=== PATIENT | male | born 1950 | race Caucasian/White ===

== ENCOUNTER 2016-06-07 10:46 | Emergency (ER) | payer MEDICARE, OTHER ==
[~2016-06-07] VITALS: Ht 162.6 cm; Wt 88.0 kg
[~2016-06-07 10:46] MED LIST: ATORVASTATIN CA10 M1 PO; BENADRYL 25MG C25 MG PO; FENOFIBRATE MI134 MG PO; GABAPENTIN 600600 MG PO; GLIMEPIRIDE 4MG4 MG PO; HYDROCODONE1 TABLET PO; KEFLEX 500MG.500 MG PO; LEVOTHYROXINE0.05 MG NG; LORTAB 5/500 501 TAB PO; METFORMIN HCL1000 MG PO; NEXIUM40 MG PO; PHENERGAN 25MG.25 M1 PO; PIOGLITAZONE HC30 MG PO; PREDNISONE 20MG20 MG PO; RANITIDINE HCL150 MG PO; SUCRALFATE 1GM T1 GM NG; TAMSULOSIN HYD0.4 MG PO; VASCEPA1 GM PO; ZOFRAN4 MG PO
--- NOTE | 2016-06-07 11:09 | Emergency Room Report ---
History of Present Illness Time Seen by [id number] Presenting Problem in Triage Pt arrived:Walked Presenting Problem:FEET PAIN, PT IS DIABETIC. 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 N Clinical Suspician of Infection? N Mental Status: 1 - Regular (Normal Baseline) Sepsis Risk:Low Sepsis Risk Have you (or family members/close friends) recently traveled outside the [place]? N If Yes, where/when: Have you had exposure to infectious disease within the past month? TB? Other? Specify: Source patient, RN notes reviewed, RN/MD Exam Limitations no limitations Comment This is a 65-year-old gentleman presented emergency room with LEFT ankle and RIGHT heel pain since earlier this morning. Patient denies any recent injury, he does not have a limp. He is a diabetic, taking gliperimide and metformin, which went to his blood sugars under tight glycemic control. ALLERGIES Coded Allergies: NO KNOWN ALLERGIES (06/07/16) Home Medications Active Scripts CEPHALEXIN (Keflex 500MG Capsule) 500 MG PO Q8H #21 CAP Prov: 12/05/14 TAMSULOSIN HCL (Tamsulosin 0.4MG) 0.4 MG PO QHS #30 CAP Prov: 12/19/13 FENOFIBRATE (Fenofibrate) 134 MG PO QPM #30 TAB Prov: 12/19/13 Reported Medications METFORMIN HCL (Metformin 1000MG) 1,000 MG PO DAILY Levothyroxine Sodium (Levothyroxine) 0.025 MG NG DAILY PIOGLITAZONE HCL (Pioglitazone Hcl 30MG Tablet) 30 MG PO DAILY Esomeprazole Magnesium (Nexium 40MG Cap) 40 MG PO DAILY Gabapentin (Gabapentin 600MG) 600 MG PO QHS Ranitidine Hcl (Ranitidine 150MG) 150 MG PO BID Sucralfate (Sucralfate 1GM Tablet) 1 GM NG ACHS Icosapent Ethyl (Vascepa) 2 GM PO BID Atorvastatin Calcium 10 MG PO DAILY Glimepiride (Glimepiride 4MG Tablet) 4 MG PO DAILY History Medical History General Angina: Yes AL: No Hypertension? No Hyperlipidemia? Yes CHF? No COPD? No Asthma? No Hernia? Yes CVA? No Seizures? No Diabetes? Yes Insulin Dependent: No Insulin Pump: No Home FSBS? No End Stage Renal Disease? No UTI? No Stones? Yes GB Disease: No Nephritic Syndrome? No Asplenia? No Hepatitis? No Sickle Cell Disease? No Arthritis? Yes Cataracts? Yes Glaucoma? No MRSA? No TB? No Cancer? 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 No: respiratory distress. Lung Sounds bilateral: normal breath sounds, lungs clear. Cardiovascular normal exam, regular rate/rhythm, no peripheral edema, no gallop, no JVD, no murmur, no rub, normal peripheral pulses Gastrointestinal normal bowel sounds, normal exam, non tender, soft, no organomegaly Extremities non-tender, normal range of motion, normal inspection, both LEFT ankle and RIGHT heel appear within normal limits, nontender, without any swelling, deformity. Patient does not appear to be having any problems, such as sleeping, with ambulation. Range of motion is not limited in either ankle. 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 No Results/Orders Orders Procedure Date/time Status FOOT-RT-3 VIEWS 06/07 1103 Active ANKLE-LT-3 VIEWS 06/07 1102 Active XRAY/CT/US XRAY/CT/US XRAY LEFT ankle, RIGHT foot- see radiologist report, consistent with arthritis, bone spurs, healed old fractures Departure Departure Time of Disposition 1130 Disposition DC Home or Self Care(routine) Clinical Impression Primary Impression: Arthritis Condition STABLE Referrals Jamar QUAN,Zach (Family): 2 Days-Call Office if not better Patient Instructions Osteoarthritis Additional Instructions Please take the medications prescribed as instructed, follow-up with Dr. Roldan if no better per instructions. Discharge Counseling Counseled pt/family regarding diagnosis, test results, medications/RX, home care, follow up needs Comment Please take the medications prescribed as instructed, follow-up with Dr. Roldan if no better per instructions. Prescriptions Current Visit Scripts ACETAMINOPHEN/DIPHENHYDRAMINE (Percogesic 325-12.5 MG Tablet) 1 TAB PO QIDP PRN PAIN #30 TAB ED Critical Care Critical Care No at 3114
[2016-06-07] MEDS ORDERED: PERCOGESIC1 TAB PO (11:10)
--- NOTE | 2016-06-07 11:46 | RADIOLOGY REPORT PS360 ---
ANKLE-LT-3 VIEWS COMPARISON: Right ankle 05/20/2008 HISTORY: Left ankle pain TECHNIQUE: AP lateral and oblique views FINDINGS: There is no significant soft tissue swelling about the ankle. The medial and lateral malleolus appear intact. There is minimal spurring of the tip of the medial malleolus resulting in some minimal focal narrowing of the ankle mortise, otherwise ankle mortise is normal. IMPRESSION: Minor degenerative change of the ankle medially as described, no acute fracture seen
--- NOTE | 2016-06-07 11:49 | RADIOLOGY REPORT PS360 ---
FOOT-RT-3 VIEWS COMPARISON: Right ankle 05/20/2008 HISTORY: Right foot pain TECHNIQUE: AP lateral and oblique views FINDINGS: There is moderate posttraumatic deformity of the distal fibula with prominent ossification of the interosseous membrane between the lower tibia and fibula. There is mild deformity of the medial malleolus secondary to old healed fracture. The tarsal bones metatarsals and phalanges appear intact with no evidence of acute fracture. There is a tiny accessory navicular bone. There is a small spur of the calcaneus at insertion of plantar tendon. The plantar arch is normal. IMPRESSION: Prominent posttraumatic changes of the ankle, small calcaneal spur, otherwise grossly negative right foot.
[2016-06-07 12:24] VITALS: BP 150/90
== END 2016-06-07 12:25 | disposition home or self-care (01) ==
LOC: ER 10:46
DX: M19.072 Primary osteoarthritis, left ankle and foot (principal); M19.071 Primary osteoarthritis, right ankle and foot; M77.31 Calcaneal spur, right foot; E11.9 Type 2 diabetes mellitus without complications

== ENCOUNTER 2017-01-23 06:33 | Day surgery (SDC) | payer MEDICARE, OTHER ==
[~2017-01-23 06:33] MED LIST changes: +INVOKANA300 MG PO; +MOBIC15 MG; +OMEPRAZOLE20 MG; +PERCOGESIC1 TAB PO
--- NOTE | 2017-01-23 08:05 | Operative Note ---
Endoscopy Report Date: 01/23/17 Preoperative diagnosis: Family history colon cancer Personal history of polyps Procedure Type of procedure: Total colonoscopy to terminal ileum with polypectomy by snare Indications: 66-year-old white male. Has had approximately 6 previous colonoscopies. Positive family history. Personal history of polyps. Consent was obtained and patient was taken to same-day surgery endoscopy procedure room. He was positioned in a lateral decubitus position. Adequate intravenous sedation was achieved with titration of 9 mg Versed and 200 g fentanyl for the duration of the procedure. He was found have some minor external hemorrhoids. Variable stiffness Olympus colonoscope was inserted via the anus. It was advanced to the cecum. Ileocecal valve and appendiceal orifice were identified. Colonoscope was advanced a short distance into the terminal ileum which appeared grossly normal. Colonoscope was withdrawn through the colon with careful surveillance. At the splenic flexure there was a very tiny diminutive polyp removed with cold biopsy forceps. In the descending colon there was a small adenomatous appearing polyp removed with hot snare. Small diminutive polyp was removed with hot snare in the sigmoid colon. He had some sigmoid diverticulosis without any evidence of diverticulitis. Retroflexion revealed no evidence of any internal hemorrhoids within the rectum. Colonoscope was withdrawn. Findings 1. Polyp 2. Diverticulosis Follow-Up Follow-Up: Pending the pathology recommend repeat colonoscopy in no more than 5 years at 0805
[2017-01-23 13:30] VITALS: BP 131/80
== END 2017-01-23 09:20 | disposition home or self-care (01) ==
LOC: SDC 06:33
PROVIDERS: Surgery
PROC: 0DBN8ZX Excision of Sigmoid Colon, Via Natural or Artificial Opening Endoscopic, Diagnostic (ICD-10-PCS; 2017-01-23)
PROC: 0DBL8ZX Excision of Transverse Colon, Via Natural or Artificial Opening Endoscopic, Diagnostic (ICD-10-PCS; 2017-01-23)
PROC: 0DBM8ZX Excision of Descending Colon, Via Natural or Artificial Opening Endoscopic, Diagnostic (ICD-10-PCS; principal; 2017-01-23 07:30)
DX: Z86.010 Personal history of colon polyps (principal); Z80.0 Family history of malignant neoplasm of digestive organs; K57.30 Diverticulosis of large intestine without perforation or abscess without bleeding; K63.5 Polyp of colon; E11.9 Type 2 diabetes mellitus without complications
CPT/HCPCS: J2405

== ENCOUNTER 2017-02-26 09:05 | Emergency (ER) | payer MEDICARE, OTHER ==
[~2017-02-26] VITALS: Ht 165.1 cm; Wt 87.5 kg
[2017-02-26] MEDS ORDERED: ETODOLAC200 MG PO (09:38)
--- NOTE | 2017-02-26 09:39 | Emergency Room Report ---
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 N Clinical Suspician of Infection? N Mental Status: 1 - Regular (Normal Baseline) Sepsis Risk:Low Sepsis Risk Have you (or family members/close friends) recently traveled outside the [place]? N If Yes, where/when: Have you had exposure to infectious disease within the past month? TB? Other? Specify: Source patient, RN notes reviewed, RN/MD Exam Limitations no limitations Comment This is a 66 year old male arriving to the ER with RIGHT shoulder pain after slipping in the shower and catching himself on a handicap bar [place] preventing from falling all the way down. Patient denies any impact with the floor, any head injury or neck pain. ALLERGIES Coded Allergies: No Known Allergies (01/22/17) Home Medications Active Scripts FENOFIBRATE (Fenofibrate) 134 MG PO QPM #30 TAB Prov: 12/19/13 Reported Medications METFORMIN HCL (Metformin 1000MG) 1,000 MG PO DAILY Canagliflozin (Invokana) 300 mg PO DAILY Meloxicam (Mobic 15MG) (Unknown Dose) Omeprazole (Omeprazole 20MG) Atorvastatin Calcium 10 MG PO DAILY Glimepiride (Glimepiride 4MG Tablet) 4 MG PO DAILY History Medical History General CAD? No Angina: Yes MA: No Hypertension? No Hyperlipidemia? Yes CHF? No DVT? No PE? No COPD? No Asthma? No Anemia? No GERD? No Gastric ulcers? No GI Bleed? No Hernia? No Thyroid Problems? Yes Hypothyroidism? Yes CVA? No Seizures? No Diabetes? Yes Insulin Dependent: No Insulin Pump: No Home FSBS? No Renal Insuffiency? No End Stage Renal Disease? No UTI? No Stones? Yes BPH? No GB Disease: No Nephritic Syndrome? No Asplenia? No Hepatitis? No Sickle Cell Disease? No Arthritis? Yes Migraines? Yes Cataracts? No Glaucoma? No MRSA? No HIV? No TB? No Anxiety? No Depression? No Cancer? No More? 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 No: respiratory distress. Lung Sounds bilateral: normal breath sounds, lungs clear. 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 No Comment Patient medically stable, in minimal distress. Advised him to follow-up with orthopedic surgeon per discharge instructions. Impression diagnosis involves ruptured rotator cuff tendon, rotator cuff tendinitis, before meals separation RIGHT shoulder capsular injury, etc. Results/Orders Orders Procedure Date/time Status [id number] VIEWS 02/26 0909 Active XRAY/CT/US XRAY/CT/US XRAY shoulder (right) XR interpretation by reviewed by me Xray Results no acute bony deformity Departure Departure Time of Disposition 0934 Disposition DC Home or Self Care(routine) Clinical Impression Primary Impression: Rotator cuff syndrome of right shoulder Condition STABLE Referrals Nadia QUAN,Andre SANDRA MD, ALEXUS LAWS Patient Instructions DI for Rotator Cuff Injury Additional Instructions Please follow-up with Dr. Ortega or Dr. Sandra in the office within the next 2 days, for additional evaluation and treatment. Discharge Counseling Counseled pt/family regarding diagnosis, test results, medications/RX, home care, follow up needs Comment Please follow-up with Dr. Ortega or Dr. Sandra in the office within the next 2 days, for additional evaluation and treatment. Prescriptions Current Visit Scripts Etodolac 200 MG PO QIDP PRN pain #20 CAP ED Critical Care Critical Care No at 0948
--- NOTE | 2017-02-26 09:39 | Emergency Room Report ---
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 N Clinical Suspician of Infection? N Mental Status: 1 - Regular (Normal Baseline) Sepsis Risk:Low Sepsis Risk Have you (or family members/close friends) recently traveled outside the [place]? N If Yes, where/when: Have you had exposure to infectious disease within the past month? TB? Other? Specify: Source patient, RN notes reviewed, RN/MD Exam Limitations no limitations Comment This is a 66 year old male arriving to the ER with RIGHT shoulder pain after slipping in the shower and catching himself on a handicap bar [place] preventing from falling all the way down. Patient denies any impact with the floor, any head injury or neck pain. ALLERGIES Coded Allergies: No Known Allergies (01/22/17) Home Medications Active Scripts FENOFIBRATE (Fenofibrate) 134 MG PO QPM #30 TAB Prov: 12/19/13 Reported Medications METFORMIN HCL (Metformin 1000MG) 1,000 MG PO DAILY Canagliflozin (Invokana) 300 mg PO DAILY Meloxicam (Mobic 15MG) (Unknown Dose) Omeprazole (Omeprazole 20MG) Atorvastatin Calcium 10 MG PO DAILY Glimepiride (Glimepiride 4MG Tablet) 4 MG PO DAILY History Medical History General CAD? No Angina: Yes CT: No Hypertension? No Hyperlipidemia? Yes CHF? No DVT? No PE? No COPD? No Asthma? No Anemia? No GERD? No Gastric ulcers? No GI Bleed? No Hernia? No Thyroid Problems? Yes Hypothyroidism? Yes CVA? No Seizures? No Diabetes? Yes Insulin Dependent: No Insulin Pump: No Home FSBS? No Renal Insuffiency? No End Stage Renal Disease? No UTI? No Stones? Yes BPH? No GB Disease: No Nephritic Syndrome? No Asplenia? No Hepatitis? No Sickle Cell Disease? No Arthritis? Yes Migraines? Yes Cataracts? No Glaucoma? No MRSA? No HIV? No TB? No Anxiety? No Depression? No Cancer? No More? 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 No: respiratory distress. Lung Sounds bilateral: normal breath sounds, lungs clear. 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 No Comment Patient medically stable, in minimal distress. Advised him to follow-up with orthopedic surgeon per discharge instructions. Impression diagnosis involves ruptured rotator cuff tendon, rotator cuff tendinitis, before meals separation RIGHT shoulder capsular injury, etc. Results/Orders Orders Procedure Date/time Status [id number] VIEWS 02/26 0909 Active XRAY/CT/US XRAY/CT/US XRAY shoulder (right) XR interpretation by reviewed by me Xray Results no acute bony deformity Departure Departure Time of Disposition 0934 Disposition DC Home or Self Care(routine) Clinical Impression Primary Impression: Rotator cuff syndrome of right shoulder Condition STABLE Referrals Nadia QUAN,Andre SANDRA MD, ALEXUS LAWS Patient Instructions DI for Rotator Cuff Injury Additional Instructions Please follow-up with Dr. Ortega or Dr. Sandra in the office within the next 2 days, for additional evaluation and treatment. Discharge Counseling Counseled pt/family regarding diagnosis, test results, medications/RX, home care, follow up needs Comment Please follow-up with Dr. Ortega or Dr. Sandra in the office within the next 2 days, for additional evaluation and treatment. Prescriptions Current Visit Scripts Etodolac 200 MG PO QIDP PRN pain #20 CAP ED Critical Care Critical Care No at 0948
[2017-02-26 09:45] VITALS: BP 159/95
--- NOTE | 2017-02-26 20:41 | RADIOLOGY REPORT PS360 ---
[id number] VIEWS HISTORY: pain Patient Age: 66 years: Male Ordering Physician: Sharath Rivera MD TECHNIQUE: 3 views right shoulder COMPARISON :No previous shoulder studies Chest film December 2014 FINDINGS Glenohumeral joint is intact humeral head and neck with no acute findings. Slight roughening superior margin of the greater tuberosity reflecting impingement changes.. Nonspecific AC joint hypertrophy with mild/moderate inferior spurring at the AC joint likely impinges superior aspect of the supraspinatus at medial outlet../. Question some mild sclerotic and hypertrophic changes inferior acromion as well but these are less certain and may be accentuated by projection. [place] right lung clear IMPRESSION. Glenohumeral joint is intact. AC joint hypertrophy. Spurring inferiorly at AC joint. Other observations in text
== END 2017-02-26 09:46 | disposition home or self-care (01) ==
LOC: ER 09:05
DX: S46.011A Strain of muscle(s) and tendon(s) of the rotator cuff of right shoulder, initial encounter (principal); W01.0XXA Fall on same level from slipping, tripping and stumbling without subsequent striking against object, initial encounter; E11.9 Type 2 diabetes mellitus without complications; E78.5 Hyperlipidemia, unspecified; Z87.891 Personal history of nicotine dependence

== ENCOUNTER → 2017-03-12 | Outpatient (CLI) | payer MEDICARE, OTHER ==
[~2017-03-12] MED LIST changes: +ETODOLAC200 MG PO
--- NOTE | 2017-03-13 10:35 | RADIOLOGY REPORT PS360 ---
MRI-UP EXT ANY JNT W/O-RT HISTORY: Shoulder pain following injury with limited range of motion ACUTE PAIN OF RT SHOULDER ORDERING PHYSICIAN: ALEXUS SANDRA MD PATIENT AGE: 66 years COMPARISON: Radiograph of 02/26/2017 TECHNIQUE: Standard multiplanar multiecho sequences are performed without contrast. FINDINGS: There is complete tear of the supraspinatus tendon with retraction of the musculotendinous fibers. Fluid signal intensity is present in the subacromial region. The infraspinatus tendon does appear intact with slight increased T2 signal of the infraspinatus consistent with tendinopathy/tendinosis. The subscapularis and teres minor tendons also appear intact. There is a SLAP injury/tear. The bicipital tendon does appear intact of the anterior glenoid labrum. Fluid is present in the subscapular and subcoracoid region consistent with bursitis. No fracture or dislocation. Hypertrophic changes involve the humeral head at the greater tuberosity. Hypertrophic changes are present at the acromioclavicular joint and there is some hypertrophy also along the inferior surface of the acromion. IMPRESSION: 1. Complete tear of the supraspinatus tendon with musculotendinous retraction. 2. SLAP tear of the anterior glenoid labrum nondisplaced. 3. Subscapularis and subcoracoid bursitis. 4. Acromioclavicular arthropathy
== END ==
LOC: RAD 09:05
DX: M25.511 Pain in right shoulder (principal)

== ENCOUNTER → 2017-03-22 | Outpatient (CLI) | payer MEDICARE, OTHER ==
[2017-03-22 11:33] LABS: HEMOGLOBIN 15.4 g/dL (14.1-18.0)
[2017-03-22 12:12] LABS: BUN 20 mg/dL (7-18)
[2017-03-22 12:13] LABS: GFR (ESTIMATED) 67 ML/MIN (>60)
--- NOTE | 2017-03-28 14:50 | RADIOLOGY REPORT PS360 ---
CHEST(2 VIEWS-NOT PORTABLE) HISTORY: DM,OSTEOARTHRITIS,PRE-OP ORDERING PHYSICIAN: ALEXUS SANDRA MD PATIENT AGE: 66 years COMPARISON: 12/05/2014 FINDINGS: The cardiomediastinal silhouette and pulmonary vascularity are within normal limits. The lungs are clear without infiltrates, suspicious nodules, or pleural effusions. No acute bony abnormalities. Old granulomatous disease. Screw is present in the left humeral head IMPRESSION: No change with no acute finding
== END ==
LOC: LAB 11:10
PROVIDERS: Orthopaedic Surgery
DX: M75.101 Unspecified rotator cuff tear or rupture of right shoulder, not specified as traumatic (principal); Z01.810 Encounter for preprocedural cardiovascular examination; Z01.811 Encounter for preprocedural respiratory examination; Z01.812 Encounter for preprocedural laboratory examination

== ENCOUNTER 2017-04-10 07:34 | Day surgery (SDC) | payer MEDICARE, OTHER ==
[~2017-04-10] VITALS: Ht 162.6 cm; Wt 86.2 kg
--- NOTE | 2017-04-10 14:38 | Anesthesia Record ---
Anesthesia Record Part II Discharge time: 1455 Destination: Same day surgery PACU nurse assessment review? Yes Patient is: Stable Anesthesia complications? No at 1435
--- NOTE | 2017-04-10 14:38 | Anesthesia Record ---
Anesthesia Record Part I Total IV fluids: 3500 EBL (ml): 25 Urine Output: 1400 B/P: 135/88 % SaO2: 95 Pulse: 105 Resps: 16 Temp: 97 Patient is: Drowsy, Nasal O2, Stable Stable to PACU at: 1425 at 1437
[2017-04-10 15:22] LABS: URINE BILIRUBIN - DIPSTICK NEGATIVE (NEG); URINE BLOOD NEGATIVE (NEG)
--- NOTE | 2017-04-10 15:26 | Operative Note ---
Procedure/Operative Record Date of Procedure: 04/10/17 Referring physician: Dr. Roldan Pre-op diagnosis: 1. Complete full-thickness Rotator cuff tear RIGHT shoulder 2. Biceps tendinopathy RIGHT shoulder 3. Subacromial bursitis RIGHT shoulder 4. Subacromial impingement RIGHT shoulder 5. Acromioclavicular joint arthritis RIGHT shoulder 6. Injury, RIGHT shoulder Post-op diagnosis: 1. Rotator cuff tear RIGHT shoulder- Full thickness complete tear of the supraspinatus and full thickness complete tear of infraspinatus tendons (large rotator cuff tear) 2. Biceps tendinopathy RIGHT shoulder 3. Subacromial bursitis RIGHT shoulder 4. Subacromial impingement RIGHT shoulder 5. Acromioclavicular joint arthritis RIGHT shoulder 6. Degenerative labrum glenohumeral joint, RIGHT shoulder Procedure performed: 1. RIGHT shoulder arthroscopic rotator cuff repair of a large rotator cuff tear. 2. RIGHT shoulder arthroscopic subacromial decompression with subacromial and subdeltoid bursectomy and bony acromioplasty. 3. RIGHT shoulderarthroscopic glenohumeral joint debridement, extensive. 4. RIGHT shoulder biceps enotomy 5. RIGHT shoulder arthroscopic distal clavicle excision Surgeon: Audi QUAN,Saleem Matthews Architect Marine(s): Dr. 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 He had weakness and difficulty with the use of the arm. Preoperative evaluation was consistent with the above mentioned diagnosis. After discussion of the risks and benefits of the surgical versus nonsurgical management, he elected to proceed with surgical remediation. The surgery is indicated to relieve the pain, decrease the disability and to improve the function. Findings: There was a full-thickness crescent-shaped complete and partially retracted tear of the supraspinatus and infraspinatus tendons. The intra-articular biceps tendon showed tendinopathy with extensive fraying. The labrum was degenerate and showed extensive fraying with partial detachment especially superiorly and anteriorly. The articular surface of the humerus and the glenoid had some softening, but no evidence of any cartilage loss. There was extensive subacromial and subdeltoid bursitis and the acromion had undersurface spurring over the anterolateral margin. The acromioclavicular joint showed undersurface spurring and degenerative changes. Description of procedure: On the day of the procedure, the patient and family were met in the preoperative area and positively identified. I again reviewed the clinical and imaging findings with the patient and his family and discussed the diagnosis, implications of the same, natural history and management options including both nonsurgical and surgical options for his shoulder. Nonsurgical alternatives discussed for him include physical therapy, activity modification NSAIDs, effective pain management and local steroid injections. Given his symptoms, clinical and MRI findings, functional status, he is opting for surgical management. He previously had surgery on his left shoulder with very good results. In my opinion, the surgical option best suited for him would be an arthroscopic rotator cuff repair, glenohumeral joint debridement, biceps tenotomy versus tenodesis, sub acromial decompression and distal clavicle excision. I told him that there were no guarantees with surgery; he could be no better or even worse. The complications discussed include but are not limited to infection, injury to nerves and blood vessels, bleeding, hematoma, tendon injury , fluid extravasation, chondrolysis, injury to the articular surface, instrument failure, DVT/PE, incomplete relief/continued pain, failure of the condition to improve, incomplete return of function, shoulder instability, arthritis, stiffness, complex regional pain syndrome (CRPS), recurrence, hardware failure, anchor pullout and acromion fracture, failure of the surgery to accomplish the desired goals, decreased use of the arm, loss of use of the arm, loss of the arm , loss of life. Likely need for further surgery in the future has been discussed. I've indicated to the patient where the proposed incisions would be made and also discussed the possibility of extending the incisions or performing an open surgery if needed to accomplish an effective repair/surgery. With regards to the biceps tendon- depending on the findings at arthroscopy, we talked about tenodesis versus tenotomy and pros and cons of each procedure. We discussed possible deformity of the anterior arm and muscle cramps with tenotomy as opposed to possible screw site pain with tenodesis and the extra surgery involved. He elected to have a biceps tenotomy. We talked about doing most of the surgery arthroscopically with possibility of open surgery if felt necessary during surgery or because of poor visualization due to bleeding. We also discussed the postoperative recovery and rehabilitation protocol. He understands use of the abduction pillow and sling as part of the postoperative protocol. He understands that there is a chance that the tendon may not heal and there is a risk for cuff repair failure. He also understands the likely need for further surgery in future. I believe the patient to be well informed with regard to the proposed surgery. I told him that it would take up to a year for complete recovery of his shoulder. All his questions were answered by me and he verbalized a good understanding.~He wished to proceed with surgery as planned. His surgical site was marked and initialed by me. I performed a general physical examination, reviewed the consent form with him and signed the same. Patient was then brought to the operating room and a general anesthesia and interscalene block was administered by the broaching machine set up operator. He was then placed in a well-padded beach-chair position. The right upper extremity was then prepped and draped in the usual sterile fashion. A preprocedure timeout was performed in accordance with the hospital policy. Verbal verification of delivery of prophylactic intravenous antibiotics was performed. Right shoulder arthroscopic landmarks were drawn on the skin with a marker pen. Examination of the shoulder under anesthesia showed very good range of motion and there was no instability. I then injected the glenohumeral joint with 20 mL of the irrigation fluid through the posterior portal using a spinal needle. I also injected 10 cc of 0.5% Marcaine with epinephrine at the proposed arthroscopic portal sites and into the subacromial space. The posterior viewing portal was established and the arthroscope was introduced into the glenohumeral joint. I then established an anterior interval portal under direct visualization. As mentioned in the findings able, there was extensive fraying of the biceps tendon and the labrum with partial detachment of the labrum superiorly and anteriorly. There was a large partially retracted retracted rotator cuff tear involving the supra and infraspinatus tendons. The subscapular tendon was intact. There was softening of the articular cartilage over the glenoid and humeral head but no defects or full -thickness cartilage loss. I then tenotomized the tendon close to the origin. I then proceeded to debride the anterior, superior and posterior labrum, the biceps tendon stump and debrided the synovitis in the rotator interval. After this extensive arthro-debridement of the glenohumeral joint, we turned our attention to the subacromial space. Upon entering the subacromial space through the posterior portal, a significant amount of bursitis was encountered. The space was noted to be quite tight under the acromion. I then created two direct lateral portals under vision and debrided the bursitis with a shaver and an ablator. After clearing the subacromial space of bursitis, a large crescent shaped full-thickness rotator cuff tear involving the entirety of the supraspinatus and entirety of the infraspinatus was noted. The torn edge was retracted to the level of the middle of the humeral head. The remnant of the tendon over the footprint was debrided. I then tested the mobility of the tendon with a grasper and noted that it was fairly mobile and was coming onto the footprint without much tension. I then prepared the footprint of the supraspinatus and infraspinatus tendons with an arthroscopic shaver and ablator and made multiple holes through the cortical bone with a K wire. I also removed the articular cartilage from the lateral edge of the humeral head with a ring curette. I then proceeded to perform a double row rotator cuff tendon repair in a Speed Bridge technique using the [employer] SwiveLock SP implant system. I first placed an anterior and a posterior medial row anchors with fiber tape loops from the Speed Bridge implant system at the articular margins of the humeral head. I used accessory lateral portals at the lateral edge of the acromion for placement of these anchors. I then passed the anterior fiber link suture through the rotator cuff tendon with a fast pass scorpion. I then repeated this with the posterior anchor's sutures. I then retrieved one fiber tape suture from each anchor and used for the lateral row fixation in a Speed Bridge fashion using 2 Arthrex lateral row SwiveLock anchors for the lateral row fixation. This gave us an excellent bridging construct with very good double row repair without dog ears either anteriorly or posteriorly. I verified that there was no gaping in the repair with the arm at the side and no motion with vigorous internal and external rotation. I then completed the subacromial and subdeltoid bursectomy. I then proceeded to perform a bony acromioplasty as the acromion was downsloping and there was a large spur at the antro-lateral corner. I did this with a 4 mm arthroscopic bur, shaver and ablator using a cutting block method. During this procedure I preserved most of the coracoacromial ligament. I then proceeded to clear the undersurface of the acromioclavicular joint after identifying the joint by placing a percutaneous spinal needle. I used the posterior portal and one of the anterolateral portals for viewing and the anterior portal as a working portal. After debriding the undersurface of the acromioclavicular joint, I noted large osteophytes on both sides of the joint. After opening the undersurface of the acromioclavicular joint, I removed about 8 mm of the lateral end of the clavicle along with the osteophytes using the 4 mm arthroscopic bur. I made sure there was enough clearance superiorly and posteriorly and there were no sharp edges. The superior capsular ligaments were preserved. I then removed all instruments after suctioning out the fluid through one of the cannulas. Portals were closed with 2-0 nylon sutures. A sterile non- adherent dressing was applied. The arm was placed in a sling with an abduction pillow. Patient was then reversed from the anesthetic and transferred onto the [facility]. He was then transported to the postoperative recovery area in stable condition. He tolerated the procedure well and there were no immediate complications. At the end of the procedure the swab, needle and instrument count was correct according to the scrub team. Postoperative plan: The patient was discharged home with appropriate instructions after fully recovering from the anesthetic. He was advised to wear the sling with abduction pillow all the time. He was advised to mobilize the elbow, wrist and fingers intermittently. Follow-up in my office in 2-3 days time for change of dressings. He was advised not to take any nonsteroidal anti-inflammatory drugs and to avoid any tobacco usage. Follow-up in my office in 2-3 days time for reducing the dressings and wound inspection and again in 10-14 days time for removal of sutures. At 6 weeks he will begin gentle progressive 4 quadrant stretching. Total sling time will be 6-8 weeks. At 3 months he will have unrestricted 4 quadrant stretching, parascapular stabilization and strengthening. Radiographs will also be obtained at that visit. EBL (ml): 10 Implant: Ar[employer]rex SwiveLock Speed Bridge Rotator cuff tear repair implant kit Complications: None Specimens: None
[2017-04-10 15:47] LABS: URINE SQUAMOUS CELLS OCC #/hpf (OCC)
[2017-04-10 15:52] VITALS: BP 137/72
== END 2017-04-10 16:12 | disposition home or self-care (01) ==
LOC: SDC 07:34
PROVIDERS: Orthopaedic Surgery
PROC: 0LM14ZZ Reattachment of Right Shoulder Tendon, Percutaneous Endoscopic Approach (ICD-10-PCS; principal; 2017-04-10 09:30)
PROC: 0RNJ4ZZ Release Right Shoulder Joint, Percutaneous Endoscopic Approach (ICD-10-PCS; principal; 2017-04-10 09:30)
DX: M75.121 Complete rotator cuff tear or rupture of right shoulder, not specified as traumatic (principal); E11.9 Type 2 diabetes mellitus without complications
CPT/HCPCS: C1713; J2405; J2710